=== PATIENT | male | born 1940 | race Caucasian/White ===

== ENCOUNTER 2023-12-25 20:10 | Emergency (ER) | payer OTHER ==
[~2023-12-25] VITALS: Ht 172.7 cm; Wt 99.8 kg
[2023-12-25 20:10] VITALS: BP_SYST 115; PULSE 86; RESP 20; TEMP 98; O2SAT 96
[~2023-12-25 20:10] MED LIST: ACET500C21 PO; ALBMDI INH; ALBU90AE2 INH; BENZ100C92 PO; DONE10TA44 PO; FLUT12AE INH; FOLI-43 PO; LIP10 PO; MEMA10TA22 PO; MET2.5 PO; PRED1TAB3 PO; QUET25TA36 PO; TAMS-11 PO; [UNRECOGNIZED DRUG - CODE] PO
[2023-12-25] MEDS: ACETAMINOPHEN 500 MG TABLET PO ONE (21:07)
[2023-12-25] MEDS: DIPHTH,PERTUSS(ACELL),TET VAC 0.5 ML VIAL (Tdap) I.M. ONE (21:15)
[2023-12-26 00:04] VITALS: BP_SYST 130; PULSE 66; RESP 18; TEMP 97
== END 2023-12-26 00:04 | disposition home or self-care (01) ==
LOC: SED 20:10
DX: S01.112A Laceration without foreign body of left eyelid and periocular area, initial encounter (principal); S89.92XA Unspecified injury of left lower leg, initial encounter; S09.90XA Unspecified injury of head, initial encounter; Z23 Encounter for immunization; Z79.899 Other long term (current) drug therapy; Z79.2 Long term (current) use of antibiotics; W06.XXXA Fall from bed, initial encounter; Y93.89 Activity, other specified; Y92.89 Other specified places as the place of occurrence of the external cause; Y99.8 Other external cause status
CPT/HCPCS: 70450-TC; 70486; 73560; 90715; 99285

== ENCOUNTER 2024-02-05 19:56 | Inpatient (IN) | payer OTHER ==
[~2024-02-05] VITALS: Ht 172.7 cm; Wt 81.6 kg
[2024-02-05 19:56] VITALS: BP_SYST 87; PULSE 107; RESP 18; TEMP 99.1; O2SAT 96
[~2024-02-05 19:56] MED LIST changes: -ALBU90AE2 INH; +ALBU90AE3 INH; +ATOR-449 PO; -LIP10 PO; +SULF1TAB48 PO
[2024-02-05] MEDS ORDERED: PIPERACILLIN/TAZOBACTAM 3.375 GM/VIAL (ZOSYN) IV ONE (20:23)
[2024-02-05] MEDS: IPRATROPIUM/ALBUTEROL SULFATE 3 ML AMPUL.NEB (DUONEB) INH ONE (20:32)
[2024-02-05] MEDS: NS 1000 ML IV.SOLN IV ONE (20:33)
[2024-02-05 20:42] LABS: BLOOD GAS HCO3 16.8 mmol/L (21.0-27.0); BLOOD GAS PCO2 22.8 mmHg (32.0-45.0); BLOOD GAS PH 7.484 (7.350-7.450); BLOOD GAS PO2 88.5 mmHg (75.0-100.0)
[2024-02-05 20:43] LABS: ABG O2 SAT% ESTIMATE 97.5 % (94.0-100.0); ALLEN'S TEST POSITIVE (P); BLOOD GAS BASE EXCESS -5.5 mmol/L (-3.0-3.0)
[2024-02-05] MEDS: methylPREDNISolone SOD SUCC/PF 62.5 MG/ML VIAL IVP ONE (20:48)
[2024-02-05] MEDS: PIPERACILLIN/TAZO 3.375 GM in D5W 50 ML IV ONE (20:49)
[2024-02-05 20:59] LABS: BASOPHILS % (AUTO) 0.3 % (0.0-2.0); HEMATOCRIT 25.9 % (36-54); HEMOGLOBIN 8.7 g/dL (14.0-18.0); LYMPHOCYTES # (AUTO) 0.5 K/uL (1.0-5.5); LYMPHOCYTES % (AUTO) 4.8 % (20.5-51.5); MEAN CORPUSCULAR HEMOGLOBIN 31 pg (27-31); MEAN CORPUSCULAR HGB CONC 33 % (32-36); MEAN CORPUSCULAR VOLUME 92 fL (79.0-98.0); MONOCYTES # (AUTO) 0.4 K/uL (0.0-1.0); MONOCYTES % (AUTO) 3.4 % (1.7-9.3); NEUTROPHILS # (AUTO) 10.3 K/uL (1.8-7.7); NEUTROPHILS % (AUTO) 91.5 % (40.0-70.0); PLATELET COUNT (AUTO) 130 K/uL (130-430); RED BLOOD CELL COUNT(AUTO) 2.81 MIL/uL (4.2-6.2); RED CELL DISTRIBUTION WIDTH 20.8 % (9.0-15.0); WHITE BLOOD COUNT (AUTO) 11.2 K/uL (4.8-10.8)
[2024-02-05 21:06] LABS: INR 1.4 (0.80-1.20); PROTHROMBIN TIME 14.2 SECS (9.5-12.5)
[2024-02-05 21:17] LABS: ALANINE AMINOTRANSFERASE 20 U/L (12-78); ALBUMIN 1.6 g/dL (3.4-4.8); ANION GAP 13 (5-15); ASPARTATE AMINOTRANSFERASE 52 U/L (10-37); CALCIUM 7.8 mg/dL (8.4-11.0); CARBON DIOXIDE 21 mmol/L (23-29); CHLORIDE 104 mmol/L (98-107); CREATININE 1.21 mg/dL (0.55-1.30); GLUCOSE 118 mg/dL (74-106); POTASSIUM 4.8 mmol/L (3.5-5.1); SODIUM SERUM 138 mmol/L (136-145); TOTAL BILIRUBIN 1.1 mg/dL (0.0-1.0); TOTAL PROTEIN, SERUM 5.3 g/dL (6.4-8.3); UREA NITROGEN, BLOOD 21 mg/dL (8-21)
[2024-02-05 21:22] LABS: BILIRUBIN,DIRECT 0.7 mg/dL (0.0-0.3)
[2024-02-05] MEDS ORDERED: NOREPINEPHRINE 4 MG/4 ML VIAL IV ONE (22:17)
[2024-02-05] MEDS: ENOXAPARIN SODIUM 80 MG/0.8 ML SYRINGE SUBCUT ONE (22:19)
[2024-02-06] VITALS (8 sets, daily range): BP systolic 90–132; PULSE 113–122; RESP 25–35; TEMP 96.8–97; O2SAT 92–97
[2024-02-06] MEDS: NOREPINEPHRINE BITARTRATE 4 MG in NS 246 ML IV ONE (02:05)
[2024-02-06 04:45] LABS: BILIRUBIN,URINE 3+ (NEGATIVE); BLOOD, URINE NEGATIVE (NEGATIVE); CLARITY/URINE SL CLOUDY (CLEAR); COLOR,URINE YELLOW (YELLOW); GLUCOSE,URINE NEGATIVE (NEGATIVE); KETONES,URINE TRACE (NEGATIVE); NITRITE, URINE POSITIVE (NEGATIVE); PH,URINE 5.5 (5.0-8.0); PROTEIN URINE 1+ (NEGATIVE)
[2024-02-06 05:23] LABS: LEUKOCYTE ESTERASE ,URINE 1+ (NEGATIVE); UROBILINOGEN,URINE >=8 (0.2-1.0)
[2024-02-06 05:24] LABS: BACTERIA,URINE FEW /HPF (None Seen); RBC,URINE 0-3 /HPF (0-3)
[2024-02-06] MEDS ORDERED: NOREPINEPHRINE BITARTRATE 8 MG in D5W 242 ML IV PRN (08:30)
[2024-02-06] MEDS ORDERED: NALOXONE HCL 0.4 MG/ML AMP (NARCAN) IVP PRN ×2 (09:30)
[2024-02-06] MEDS ORDERED: ONDANSETRON HCL 4 MG/2 ML VIAL IVP PRN (09:30)
[2024-02-06] MEDS ORDERED: HYDROcodone/ACETAMIN 5-325 MG TAB (NORCO/ VICODIN) PO PRN (09:30)
[2024-02-06] MEDS ORDERED: LORazepam 2 MG/ML VIAL IVP PRN (09:30)
[2024-02-06] MEDS ORDERED: ACETAMINOPHEN 325 MG TABLET PO PRN (09:30)
[2024-02-06] MEDS ORDERED: HYDROcodone/ACETAMIN 10-325 MG TAB PO PRN (09:30)
[2024-02-06] MEDS ORDERED: BENZONATATE 100 MG CAPSULE (TESSALON) PO SCH (10:00)
[2024-02-06] MEDS: NOREPINEPHRINE BITARTRATE 8 MG in D5W 242 ML IV PRN (10:13)
[2024-02-06 10:16] LABS: HEMATOCRIT 26.2 % (36-54); HEMOGLOBIN 8.3 g/dL (14.0-18.0); MEAN CORPUSCULAR HEMOGLOBIN 30 pg (27-31); MEAN CORPUSCULAR HGB CONC 32 % (32-36); MEAN CORPUSCULAR VOLUME 95 fL (79.0-98.0); PLATELET COUNT (AUTO) 147 K/uL (130-430); RED BLOOD CELL COUNT(AUTO) 2.75 MIL/uL (4.2-6.2); RED CELL DISTRIBUTION WIDTH 20.9 % (9.0-15.0)
[2024-02-06 10:46] LABS: ALANINE AMINOTRANSFERASE 109 U/L (12-78); ALBUMIN 1.6 g/dL (3.4-4.8); ANION GAP 18 (5-15); ASPARTATE AMINOTRANSFERASE 327 U/L (10-37); CALCIUM 7.7 mg/dL (8.4-11.0); CARBON DIOXIDE 15 mmol/L (23-29); CHLORIDE 104 mmol/L (98-107); CREATININE 1.72 mg/dL (0.55-1.30); GLUCOSE 179 mg/dL (74-106); POTASSIUM 5.4 mmol/L (3.5-5.1); SODIUM SERUM 137 mmol/L (136-145); TOTAL BILIRUBIN 1.4 mg/dL (0.0-1.0); TOTAL PROTEIN, SERUM 5.3 g/dL (6.4-8.3); UREA NITROGEN, BLOOD 31 mg/dL (8-21)
[2024-02-06] MEDS: IPRATROPIUM BROM 0.5 MG/2.5 ML VIAL.NEB (ATROVENT) INH SCH (11:00)
[2024-02-06] MEDS: ALBUTEROL SULFATE 0.083% 2.5 MG/3 ML VIAL.NEB INH SCH (11:01)
[2024-02-06 11:26] LABS: CORRECTED WHITE BLOOD COUNT 11.4 K/uL (4.5-11.0); EOSINOPHILS % (MANUAL) 0 % (0-7); LYMPHOCYTES % (MANUAL) 8 % (20-46); MONOCYTES % (MANUAL) 3 % (0-11)
[2024-02-06 11:27] LABS: ANISOCYTOSIS 1+; BASOPHILS % (MANUAL) 0 % (0-2); METAMYELOCYTES % 2 % (0-0); PLATELET ESTIMATE ADEQUATE (ADEQUATE)
[2024-02-06] MEDS: FOLIC ACID 1 MG TABLET PO ONE (11:52)
[2024-02-06] MEDS: DONEPEZIL HCL 5 MG TABLET (ARICEPT) PO ONE (11:52)
[2024-02-06] MEDS ORDERED: PIPERACILLIN/TAZO 3.375/DEX-IS 50 ML IV SCH (12:00)
[2024-02-06] MEDS: SODIUM ZIRCONIUM CYCLOSILICATE 10 GM POWD.PACK PO ONE (12:49)
[2024-02-06] MEDS: PIPERACILLIN/TAZOBACTAM 2.25 GM in D5W 50 ML IV SCH (12:49)
[2024-02-06] MEDS: HYDROXYCHLOROQUINE SULFATE 200 MG TABLET PO ONE (14:48)
[2024-02-06] MEDS: FUROSEMIDE 20 MG/2 ML VIAL IVP ONE (14:48)
[2024-02-06] MEDS ORDERED: BUDESONIDE 0.5 MG/2 ML AMPUL.NEB INH SCH (19:00)
[2024-02-06] MEDS ORDERED: QUEtiapine FUMARATE 25 MG TABLET PO SCH (21:00)
[2024-02-06] MEDS ORDERED: TAMSULOSIN HCL 0.4 MG CAP PO SCH (21:00)
[2024-02-06] MEDS ORDERED: MEMANTINE HCL 5 MG TABLET PO SCH (21:00)
[2024-02-06] MEDS ORDERED: ATORVASTATIN 10 MG TABLET PO SCH (21:00)
[2024-02-07] MEDS ORDERED: HYDROXYCHLOROQUINE SULFATE 200 MG TABLET PO SCH (09:00)
[2024-02-07] MEDS ORDERED: DONEPEZIL HCL 5 MG TABLET (ARICEPT) PO SCH (09:00)
[2024-02-07] MEDS ORDERED: FOLIC ACID 1 MG TABLET PO SCH (09:00)
== END 2024-02-06 16:30 | DRG 871 ==
LOC: SED 19:56 → SIC 22:35
PROVIDERS: ADMIT Preventive Medicine Preventive Medicine/Occupational Environmental Medicine; ATTEND Preventive Medicine Preventive Medicine/Occupational Environmental Medicine
PROC: 02HV33Z Insertion of Infusion Device into Superior Vena Cava, Percutaneous Approach (ICD-10-PCS; 2024-02-05)
PROC: 5A1935Z Respiratory Ventilation, Less than 24 Consecutive Hours (ICD-10-PCS; principal; 2024-02-06)
PROC: 0BH17EZ Insertion of Endotracheal Airway into Trachea, Via Natural or Artificial Opening (ICD-10-PCS; 2024-02-06)
DX: A41.9 Sepsis, unspecified organism (principal); E43 Unspecified severe protein-calorie malnutrition; I21.4 Non-ST elevation (NSTEMI) myocardial infarction; J18.9 Pneumonia, unspecified organism; R65.21 Severe sepsis with septic shock; N17.0 Acute kidney failure with tubular necrosis; J96.01 Acute respiratory failure with hypoxia; G93.49 Other encephalopathy; N39.0 Urinary tract infection, site not specified; Z66 Do not resuscitate; E78.5 Hyperlipidemia, unspecified; I10 Essential (primary) hypertension; N40.0 Benign prostatic hyperplasia without lower urinary tract symptoms; E87.5 Hyperkalemia; G30.9 Alzheimer's disease, unspecified; F02.80 Dementia in other diseases classified elsewhere, unspecified severity, without behavioral disturbance, psychotic disturbance, mood disturbance, and anxiety; E83.52 Hypercalcemia; E80.6 Other disorders of bilirubin metabolism; Z79.899 Other long term (current) drug therapy; Z68.27 Body mass index [BMI] 27.0-27.9, adult
CPT/HCPCS: 36415; 36600; 71045; 80048; 80053; 80076; 81000; 81001; 81015; 82803; 83605; 84484; 85007; 85025; 85027; 85610; 85730; 87040; 87081; 87086; 94070; 94640; 96365; 96375; 99291; J1650; J1940; J2543; J2930; J7060